=== PATIENT | female | born 1995 | race African-American/Black ===

== ENCOUNTER 2016-08-19 07:51 | Emergency (ER) | payer OTHER ==
[~2016-08-19] VITALS: Ht 162.6 cm; Wt 65.8 kg
[2016-08-19 08:20] LABS: URINE BILIRUBIN NEGATIVE (Negative); URINE BLOOD TRACE (Negative); URINE COLOR YELLOW; URINE GLUCOSE-RANDOM* NEGATIVE (Negative); URINE KETONES NEGATIVE (Negative); URINE NITRITE NEGATIVE (Negative); URINE PROTEIN (DIPSTICK) TRACE (Negative); URINE UROBILINOGEN 0.2 E.U./dl (0.2-1.0)
[2016-08-19] MEDS ORDERED: MACROBID 100 M100 M1 PO (08:34)
[2016-08-19 09:00] LABS: SQUAMOUS >10 Many /LPF (0-3)
[2016-08-19 09:01] LABS: AMORPHOUS URATES Few /LPF (None Seen); BACTERIA 1-9 Few /HPF (None Seen); CASTS None Seen /LPF (None Seen); URINE RBC None Seen /HPF (0-2); URINE WBC 6-15 Few /HPF (0-5)
[2016-08-19 09:03] VITALS: BP 120/80
== END 2016-08-19 09:09 | disposition home or self-care (01) ==
LOC: ER 07:51
PROVIDERS: Emergency Medicine
DX: N39.0 Urinary tract infection, site not specified (principal)

== ENCOUNTER 2016-10-08 17:42 | Emergency (ER) | payer OTHER ==
[~2016-10-08] VITALS: Ht 152.4 cm; Wt 72.6 kg
[~2016-10-08 17:42] MED LIST: MACROBID 100 M100 M1 PO
[2016-10-08 18:18] LABS: URINE BILIRUBIN NEGATIVE (Negative); URINE BLOOD NEGATIVE (Negative); URINE COLOR YELLOW; URINE GLUCOSE-RANDOM* NEGATIVE (Negative); URINE KETONES NEGATIVE (Negative); URINE NITRITE NEGATIVE (Negative); URINE PROTEIN (DIPSTICK) TRACE (Negative); URINE SPECIFIC GRAVITY >= 1.030 (1.003-1.035)
[2016-10-08 18:25] LABS: SQUAMOUS >10 Many /LPF (0-3)
[2016-10-08 18:26] LABS: BACTERIA None Seen /HPF (None Seen); CASTS None Seen /LPF (None Seen); CRYSTALS None Seen /LPF (None Seen); URINE RBC 0-2 Rare /HPF (0-2)
[2016-10-08 18:49] VITALS: BP 103/50
[2016-10-08] MEDS ORDERED: CITRATE OF MAG296 ML PO (19:03)
[2016-10-08] MEDS ORDERED: SENOKOT-S1 TA1 PO (19:03)
[2016-10-08] MEDS ORDERED: ZOFRAN ODT4 MG PO (19:03)
== END 2016-10-08 19:10 | disposition home or self-care (01) ==
LOC: ER 17:42
PROVIDERS: Emergency Medicine
DX: R11.2 Nausea with vomiting, unspecified (principal); K59.00 Constipation, unspecified

== ENCOUNTER 2019-11-19 14:44 | Emergency (ER) | payer OTHER ==
[~2019-11-19] VITALS: Ht 149.9 cm; Wt 94.3 kg
[~2019-11-19 14:44] MED LIST changes: +CITRATE OF MAG296 ML PO; +SENOKOT-S1 TA1 PO; +ZOFRAN ODT4 MG PO
[2019-11-19 15:44] LABS: ABSOLUTE NEUTROPHILS 5.6 thou/uL (1.4-8.2); BASOPHILS 0.2 % (0.0-2.0); EOSINOPHILS 1.3 % (0.0-3.0); HEMATOCRIT 33.6 % (37.0-47.0); HEMOGLOBIN 11.6 gm/dL (12.0-15.0); LYMPHOCYTES 14.7 % (24.0-44.0); MCH 28.9 pg (26.0-34.0); MCHC 34.5 g/dL (28.0-37.0); MCV 83.9 fL (80.0-100.0); MONOCYTES 8.4 % (1.0-8.0); PLATELET COUNT 262 thou/uL (150-400); POLYS 75.4 % (36.0-66.0); RDW 13.8 % (10.5-14.5); WBC 7.4 thou/uL (4.0-11.0)
[2019-11-19 15:54] LABS: CALCIUM 8.4 mg/dL (8.5-10.1); CREATININE 0.6 mg/dL (0.6-1.0); POTASSIUM 3.6 mmol/L (3.5-5.1)
[2019-11-19 16:00] LABS: ALBUMIN 2.9 g/dL (3.4-5.0); TOTAL BILIRUBIN 0.2 mg/dL (0.2-1.0); TOTAL PROTEIN 6.6 g/dL (6.4-8.2)
[2019-11-19 16:54] VITALS: BP 138/54
== END 2019-11-19 17:07 | disposition home or self-care (01) ==
LOC: ER 14:44
PROVIDERS: Nurse Practitioner Family
DX: O46.91 Antepartum hemorrhage, unspecified, first trimester (principal); O99.511 Diseases of the respiratory system complicating pregnancy, first trimester; J45.909 Unspecified asthma, uncomplicated; Z79.899 Other long term (current) drug therapy; Z3A.12 12 weeks gestation of pregnancy

== ENCOUNTER 2020-03-10 22:21 | Emergency (ER) | payer OTHER ==
[~2020-03-10] VITALS: Ht 149.9 cm; Wt 91.6 kg
[2020-03-10] MEDS ORDERED: PRENATAL PO (22:30)
[2020-03-10 23:16] VITALS: BP 130/60
== END 2020-03-10 23:17 | disposition home or self-care (01) ==
LOC: ER 22:21
DX: O36.8120 Decreased fetal movements, second trimester, not applicable or unspecified (principal); Z79.899 Other long term (current) drug therapy; Z3A.27 27 weeks gestation of pregnancy